=== PATIENT | female | born 1975 | race Caucasian/White ===

== ENCOUNTER 2018-08-20 20:48 | Emergency (ER) | payer MEDICAID ==
[~2018-08-20] VITALS: Ht 157.5 cm; Wt 68.1 kg
[~2018-08-20 20:48] MED LIST: CEPH500C5 PO; GLIP-216 PO; HYDR-3972 PO; IBUP-1986 PO; LISI-600 PO; VALA100027 PO
[2018-08-20] MEDS ORDERED: LORazepam 2 mg/ml vial IV ONE (21:05)
[2018-08-20] MEDS ORDERED: insulin regular, human 10 units/0.1 ml syringe IV ONE (21:05)
[2018-08-20] MEDS ORDERED: normal saline 1000ML IV soln IVB ONE (21:05)
[2018-08-20] MEDS ORDERED: thiamine 100mg/ml 2ml inj. IV ONE (21:05)
[2018-08-20] MEDS ORDERED: folic acid 1mg/0.2ml inj IV ONE (21:05)
[2018-08-20 21:20] LABS: ABG BASE EXCESS -10.3 mmol/L (-2.0-3.0); ABG OXYGEN SATURATION 98.5 % (95-98); ABG PCO2 (T) 17.4 mmHg (32.0-45.0); ABG PH (T) 7.418 (7.350-7.450); ABG PO2 (T) 129.3 mmHg (83-108); ALLEN'S TEST Positive; FCOHb 6.8 % (0.5-1.5); FMetHb 0.1 % (0.3-1.12); FO2Hb 91.7 % (94-100); TOTAL HEMOGLOBIN 16.2 G/dl (12.0-16.0)
[2018-08-20 21:43] LABS: BASOPHILS % (AUTO) 0.5 % (0-1); EOSINOPHILS % (AUTO) 0.6 % (0-6); HEMATOCRIT 47.3 % (35.0-45.0); HEMOGLOBIN 16.3 g/dl (12.0-16.0); LYMPHOCYTES % (AUTO) 28.5 % (21-51); MEAN CORPUSCULAR HEMOGLOBIN 32.1 PG (27.0-31.0); MEAN CORPUSCULAR HGB CONC 34.4 % (33.0-36.5); MEAN CORPUSCULAR VOLUME 93.3 FL (78-98); MEAN PLATELET VOLUME 8.7 FL (7.4-10.4); NEUTROPHILS % (AUTO) 66.4 % (42-75); PLATELET COUNT 316 X10'3 (140-440); RED BLOOD COUNT 5.07 X10'6 (4.20-5.60); RED CELL DISTRIBUTION WIDTH 12.1 % (11.5-14.5); WHITE BLOOD COUNT 11.2 X10'3 (4.5-11.0)
[2018-08-20 21:44] LABS: BASOPHILS # (AUTO) 0.1 X10'3 (0-0.2); EOSINOPHILS # (AUTO) 0.1 X10'3 (0-0.9); LYMPHOCYTES # (AUTO) 3.2 X10'3 (1.1-4.8); MONOCYTES # (AUTO) 0.4 X10'3 (0-0.9); NEUTROPHILS # (AUTO) 7.4 X10'3 (1.8-7.7)
[2018-08-20 21:54] LABS: ALANINE AMINOTRANSFERASE 32 U/L (12-78); ALBUMIN 4.4 G/DL (3.4-5.0); ALBUMIN/GLOBULIN RATIO 1.1 (1.1-1.5); ALKALINE PHOSPHATASE 78 IU/L (46-116); ANION GAP 26 (8-16); ASPARTATE AMINO TRANSFERASE 17 U/L (10-37); BILIRUBIN,TOTAL 0.2 MG/DL (0.1-1.0); BLOOD UREA NITROGEN 10 MG/DL (7-18); BUN/CREATININE RATIO 11.5 (6.6-38.0); CALCIUM 9.3 MG/DL (8.5-10.1); CHLORIDE 90 MMOL/L (99-107); CREATININE 0.87 MG/DL (0.40-0.90); ETHANOL 0.183 GM/DL (0.0-0.010); POTASSIUM 3.6 MMOL/L (3.5-5.1); SODIUM 130 MMOL/L (135-145); TOTAL PROTEIN 8.3 G/DL (6.4-8.2); eGFR 72 ML/MIN
[2018-08-20 22:01] LABS: GLUCOSE 565 MG/DL (70-104); TOTAL CARBON DIOXIDE 13.9 MMOL/L (24-32)
[2018-08-20 22:13] LABS: CLARITY,URINE CLEAR (Clear); COLOR,URINE STRAW (Yellow); GLUCOSE, URINE >=1000 mg/dl (Neg); KETONES,URINE TRACE mg/dl (Neg); LEUKOCYTE ESTERASE ,URINE NEGATIVE (Neg); NITRITES, URINE NEGATIVE (Neg); OCCULT BLOOD,URINE TRACE-INTACT (Neg); PH,URINE 5.5 (4.8-8.0); PROTEIN,URINE 30 mg/dl (Neg); UROBILINOGEN,URINE 0.2 E.U/dL (0.2-1.0)
[2018-08-20 22:18] LABS: UA COLLECTION TYPE CLN CATCH MIDSTREAM
[2018-08-20 22:20] LABS: BACTERIA,URINE FEW /HPF (Neg); RBC,URINE 0-2 /HPF (0-2); SQUAMOUS EPITHELIAL CELL,UR FEW /LPF (FEW); WBC,URINE NONE SEEN /HPF (0-4); YEAST FEW /HPF (NEGATIVE)
[2018-08-20 22:34] VITALS: BP 174/119
[2018-08-20 22:34] LABS: URINE AMPHETAMINE SCREEN NEGATIVE (Neg); URINE BARBITUATE SCREEN NEGATIVE (Neg); URINE BENZODIAZEPINES SCREEN NEGATIVE (Neg); URINE CANNABINOID SCREEN POSITIVE (Neg); URINE COCAINE SCREEN NEGATIVE (Neg); URINE METHADONE SCREEN NEGATIVE (Neg); URINE OPIATE SCREEN NEGATIVE (Neg); URINE PHENCYCLIDINE SCREEN NEGATIVE (Neg)
[2018-08-25] MEDS ORDERED: NO HOME MEDS (10:38)
== END 2018-08-20 22:36 ==
LOC: ER 20:48
DX: M25.511 Pain in right shoulder (principal); E11.65 Type 2 diabetes mellitus with hyperglycemia; F10.129 Alcohol abuse with intoxication, unspecified; E86.0 Dehydration; I10 Essential (primary) hypertension; G89.29 Other chronic pain; F12.10 Cannabis abuse, uncomplicated; Z79.899 Other long term (current) drug therapy; Y04.0XXA Assault by unarmed brawl or fight, initial encounter; Y93.89 Activity, other specified; Y92.89 Other specified places as the place of occurrence of the external cause; Y99.8 Other external cause status; Y90.9 Presence of alcohol in blood, level not specified
CPT/HCPCS: 36415; 36600; 80053; 80305; 80320; 81001; 82803; 82948; 85018; 85025; 93005; 96361; 96374; 96375; 99284; J1815; J2060; J3411; J3490

== ENCOUNTER 2018-10-07 11:49 | Emergency (ER) | payer MEDICAID ==
[~2018-10-07] VITALS: Ht 157.5 cm; Wt 70.2 kg
[~2018-10-07 11:49] MED LIST changes: -CEPH500C5 PO; +FAMO20TA8 PO; -GLIP-216 PO; -HYDR-3972 PO; -IBUP-1986 PO; +INSU100V11 SQ; +LANTUS SQ; -LISI-600 PO; +METO-292 PO; +NICO-631 TD; +POTA20TA10 PO; -VALA100027 PO
[2018-10-07 11:52] VITALS: BP 147/97
[2018-10-07] MEDS ORDERED: azithromycin 250mg tablet PO ONE (13:25)
[2018-10-07] MEDS ORDERED: CefTRIAXone 250MG IM Kit w/LIDOcaine IM ONE (13:25)
[2018-10-07 13:55] LABS: URINE HCG NEGATIVE (NEG)
[2018-10-07] MEDS ORDERED: DOXY100C43 PO (14:14)
[2018-10-07 14:32] LABS: COLOR,URINE YELLOW (Yellow); GLUCOSE, URINE >=1000 mg/dl (Neg); KETONES,URINE NEGATIVE (Neg); LEUKOCYTE ESTERASE ,URINE NEGATIVE (Neg); NITRITES, URINE NEGATIVE (Neg); OCCULT BLOOD,URINE NEGATIVE (Neg); PROTEIN,URINE TRACE mg/dl (Neg); UROBILINOGEN,URINE 0.2 E.U/dL (0.2-1.0)
[2018-10-07 14:34] LABS: CLARITY,URINE SLIGHTLY CLOUDY (Clear); UA COLLECTION TYPE CLN CATCH MIDSTREAM
[2018-10-07 14:39] LABS: BACTERIA,URINE FEW /HPF (Neg); MUCUS STRANDS FEW /LPF (Neg); RBC,URINE NONE SEEN /HPF (0-2); SQUAMOUS EPITHELIAL CELL,UR MODERATE /LPF (FEW); WBC,URINE 20-30 /HPF (0-4)
== END 2018-10-07 15:19 | disposition home or self-care (01) ==
LOC: ER 11:49
DX: N72 Inflammatory disease of cervix uteri (principal); I10 Essential (primary) hypertension; E11.9 Type 2 diabetes mellitus without complications; G89.29 Other chronic pain; F12.90 Cannabis use, unspecified, uncomplicated; Z79.4 Long term (current) use of insulin
CPT/HCPCS: 36415; 81001; 81025; 87210; 87491; 87591; 96372; 99283; J0696

== ENCOUNTER 2019-02-18 11:25 | Emergency (ER) | payer MEDICAID ==
[~2019-02-18] VITALS: Ht 157.5 cm; Wt 68.2 kg
[2019-02-18 11:31] VITALS: BP 154/96
[2019-02-18] MEDS ORDERED: NAPR250T4 PO (12:27)
[2019-02-18] MEDS ORDERED: ketorolac trometh. 30mg/ml inj. IM ONE (12:30)
[2019-02-18] MEDS ORDERED: ketorolac trometh inj. 60 MG/2 ML VIAL IM ONE (12:30)
== END 2019-02-18 12:41 | disposition home or self-care (01) ==
LOC: ER 11:25
DX: M54.5 Low back pain (principal); G89.29 Other chronic pain; I10 Essential (primary) hypertension; E11.9 Type 2 diabetes mellitus without complications; F12.90 Cannabis use, unspecified, uncomplicated; Z79.899 Other long term (current) drug therapy; Z79.4 Long term (current) use of insulin
CPT/HCPCS: 96372; 99283; J1885

== ENCOUNTER 2019-09-30 07:57 | Emergency (ER) | payer MEDICAID ==
[~2019-09-30] VITALS: Ht 157.5 cm; Wt 63.9 kg
[~2019-09-30 07:57] MED LIST changes: +ALOG1TAB PO; +CEPH250T PO; +DOXY100C43 PO; -FAMO20TA8 PO; +GABA-530 PO; +GLIP5TAB13 PO; +INSU100I31 SQ; +INSU100I39 SQ; -INSU100V11 SQ; -LANTUS SQ; -METO-292 PO; -NICO-631 TD; -POTA20TA10 PO
[2019-09-30 08:02] VITALS: BP 146/93
[2019-09-30] MEDS ORDERED: penicillin G benzathine 1.2 million unit/2ml syringe IM ONE (08:15)
[2019-09-30 08:42] LABS: CLARITY,URINE CLOUDY (Clear); COLOR,URINE YELLOW (Yellow); GLUCOSE, URINE >=1000 mg/dl (Neg); KETONES,URINE TRACE mg/dl (Neg); LEUKOCYTE ESTERASE ,URINE NEGATIVE (Neg); NITRITES, URINE NEGATIVE (Neg); OCCULT BLOOD,URINE TRACE-INTACT (Neg); PROTEIN,URINE 30 mg/dl (Neg); UROBILINOGEN,URINE 0.2 E.U/dL (0.2-1.0)
[2019-09-30 08:45] LABS: URINE HCG NEGATIVE (NEG)
[2019-09-30 08:52] LABS: UA COLLECTION TYPE CLN CATCH MIDSTREAM
[2019-09-30 08:53] LABS: MUCUS STRANDS MODERATE /LPF (Neg); SQUAMOUS EPITHELIAL CELL,UR MANY /LPF (FEW)
[2019-09-30 08:54] LABS: HYALINE CASTS 0-3 /LPF (NEGATIVE)
[2019-09-30 08:55] LABS: BACTERIA,URINE 1+ /HPF (Neg); RBC,URINE 0-2 /HPF (0-2); WBC,URINE 0-4 /HPF (0-4)
[2019-10-01 05:39] LABS: RPR Non Reactive (Non Reactive)
== END 2019-09-30 08:46 | disposition home or self-care (01) ==
LOC: ER 07:58
DX: S80.212D Abrasion, left knee, subsequent encounter (principal); Z20.2 Contact with and (suspected) exposure to infections with a predominantly sexual mode of transmission; A53.9 Syphilis, unspecified; I10 Essential (primary) hypertension; E11.9 Type 2 diabetes mellitus without complications; G89.29 Other chronic pain; F12.90 Cannabis use, unspecified, uncomplicated; Z79.2 Long term (current) use of antibiotics; Z79.4 Long term (current) use of insulin; Z79.899 Other long term (current) drug therapy; W18.39XD Other fall on same level, subsequent encounter
CPT/HCPCS: 36415; 81001; 81025; 86592; 87491; 87591; 96372; 99283; J0561

== ENCOUNTER 2021-09-12 17:24 | Emergency (ER) | payer MEDICAID ==
[~2021-09-12 17:24] MED LIST changes: -CEPH250T PO; -DOXY100C43 PO
== END 2021-09-12 18:43 | disposition left against medical advice (07) ==
LOC: ER 17:25
DX: R56.9 Unspecified convulsions (principal); Z53.21 Procedure and treatment not carried out due to patient leaving prior to being seen by health care provider